=== PATIENT | female | born 1995 | race Caucasian/White ===

== ENCOUNTER 2018-01-10 20:40 | Emergency (ER) | payer MEDICAID, OTHER ==
[~2018-01-10] VITALS: Ht 162.6 cm; Wt 52.6 kg
[2018-01-10 20:43] VITALS: BP 131/91
[2018-01-10 21:10] VITALS: BP 129/85
== END 2018-01-10 21:10 | disposition home or self-care (01) ==
LOC: MED 20:40
DX: S46.912A Strain of unspecified muscle, fascia and tendon at shoulder and upper arm level, left arm, initial encounter (principal); S46.911A Strain of unspecified muscle, fascia and tendon at shoulder and upper arm level, right arm, initial encounter; S16.1XXA Strain of muscle, fascia and tendon at neck level, initial encounter; X58.XXXA Exposure to other specified factors, initial encounter; Y93.89 Activity, other specified; Y92.89 Other specified places as the place of occurrence of the external cause; Y99.8 Other external cause status
CPT/HCPCS: 81002; 81025; 99282

== ENCOUNTER 2018-11-20 02:22 | Emergency (ER) | payer MEDICAID, OTHER ==
[~2018-11-20] VITALS: Ht 162.6 cm; Wt 52.6 kg
[2018-11-20 02:33] VITALS: BP 125/70
--- NOTE | 2018-11-20 02:33 | NUR ---
TO BED # 06 AMBULATORY
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
[2018-11-20] MEDS ORDERED: traMADol 50 MG TAB PO ONE (03:10)
[2018-11-20 03:56] VITALS: BP 119/62
--- NOTE | 2018-11-20 03:56 | NUR ---
Patient discharged with v/s stable. Written and verbal after care instructions given and explained. Patient verbalized understanding. Ambulatory with steady gait. All questions addressed prior to discharge. Advised to follow up with PMD.
== END 2018-11-20 03:56 | disposition home or self-care (01) ==
LOC: MED 02:22
DX: K04.7 Periapical abscess without sinus (principal)
CPT/HCPCS: 99283

== ENCOUNTER 2021-04-14 15:16 | Emergency (ER) | payer OTHER ==
[~2021-04-14] VITALS: Ht 162.6 cm; Wt 51.7 kg
[2021-04-14 15:19] VITALS: BP 105/46
--- NOTE | 2021-04-14 15:20 | NUR ---
PT AMBULATED TO BED
--- NOTE | 2021-04-14 15:27 | NUR ---
RAD at bedside
--- NOTE | 2021-04-14 15:28 | NUR ---
25 y/o F BIB self from home c/o L 2nd digit pain x 30 minutes s/p slamming car door against finger. Patient reports 10/10, throbbing/constant, non-radiating pain. Bruising noted to tip of digit. Denies loss of sensation, numbness, tingling. Denies meds prior to arrival. Bed locked in lowest position, side rails x 1, call light in reach. PMH/Sx/Meds: Denies NKDA
--- NOTE | 2021-04-14 15:28 | NUR ---
YOGESH Richardson is evaluating patient at bedside
[2021-04-14] MEDS ORDERED: IBUPROFEN 600 MG TAB PO ONE (15:35)
[2021-04-14] MEDS ORDERED: IBUPROFEN 600 MG TAB ONE (15:36)
--- NOTE | 2021-04-14 15:40 | NUR ---
EMT at bedside for splint application
--- NOTE | 2021-04-14 15:42 | NUR ---
PT'S LEFT POINTER FINGER PLACED IN FROG SPLINT.
--- NOTE | 2021-04-14 16:02 | NUR ---
Pt states minor relief to pain 8/10 at this time. All pt needs met.
[2021-04-14] MEDS ORDERED: IBUP-2213 PO (16:03)
== END 2021-04-14 16:10 | disposition home or self-care (01) ==
LOC: MED 15:16
DX: S60.022A Contusion of left index finger without damage to nail, initial encounter (principal); Z79.899 Other long term (current) drug therapy; W23.0XXA Caught, crushed, jammed, or pinched between moving objects, initial encounter; Y93.89 Activity, other specified; Y92.89 Other specified places as the place of occurrence of the external cause; Y99.8 Other external cause status
CPT/HCPCS: 29130; 73140; 99283; Q0092

== ENCOUNTER 2022-11-21 23:00 | Emergency (ER) | payer OTHER ==
[~2022-11-21] VITALS: Ht 162.6 cm; Wt 48.1 kg
[~2022-11-21 23:00] MED LIST: IBUP-2213 PO
[2022-11-21 23:29] VITALS: BP 111/60; PULSE 90; RESP 16; TEMP 98; O2SAT 100
--- NOTE | 2022-11-21 23:32 | NUR ---
TO LOBBY A/W BED AMBULATORY
[2022-11-22 00:19] LABS: BASOPHILS % (AUTO) 0.3 % (0.0-2.0); EOSINOPHILS % (AUTO) 0.1 % (0.0-4.0); HEMATOCRIT 38.9 % (36-48); HEMOGLOBIN 13.4 g/dL (12.0-16.0); LYMPHOCYTES # (AUTO) 0.8 K/uL (2.5-16.5); LYMPHOCYTES % (AUTO) 5.9 % (20.5-51.1); MEAN CORPUSCULAR HEMOGLOBIN 30 pg (27-31); MEAN CORPUSCULAR HGB CONC 35 g/dL (33-37); MEAN CORPUSCULAR VOLUME 87.6 fL (80-94); MONOCYTES # (AUTO) 0.7 K/uL (0.8-1.0); MONOCYTES % (AUTO) 4.7 % (1.7-9.3); NEUTROPHILS # (AUTO) 12.7 K/uL (1.8-7.7); PLATELET COUNT (AUTO) 264 K/uL (140-450); RED BLOOD CELL COUNT(AUTO) 4.44 MIL/uL (4.20-5.40); RED CELL DISTRIBUTION WIDTH 12.5 % (11.6-13.7); WHITE BLOOD COUNT (AUTO) 14.3 K/uL (4.8-10.8)
[2022-11-22 01:01] LABS: ALBUMIN 4.4 g/dL (3.4-5.0); ANION GAP 17.3 (8-16); CARBON DIOXIDE 22.3 mmol/L (21-32); CREATININE 0.6 mg/dL (0.6-1.3); MAGNESIUM 1.7 mg/dL (1.8-2.4); PHOSPHORUS 2.8 mg/dL (2.5-4.9); POTASSIUM 3.6 mmol/L (3.5-5.1); THYROID STIMULATING HORMONE 1.17 uIU/mL (0.34-3.74); TOTAL BILIRUBIN 0.9 mg/dL (0.0-1.0)
[2022-11-22 01:30] VITALS: BP 111/60; PULSE 90; RESP 16; TEMP 98; O2SAT 100
== END 2022-11-22 01:30 | disposition home or self-care (01) ==
LOC: MED 23:00
DX: R20.2 Paresthesia of skin (principal); F41.9 Anxiety disorder, unspecified; Z79.899 Other long term (current) drug therapy; Z98.890 Other specified postprocedural states
CPT/HCPCS: 36415; 80053; 83735; 84100; 84443; 85025; 99283

== ENCOUNTER 2023-07-19 06:18 | Emergency (ER) | payer OTHER ==
[~2023-07-19] VITALS: Ht 162.6 cm; Wt 51.3 kg
[2023-07-19 06:24] VITALS: BP 107/71; PULSE 95; RESP 16; TEMP 97.7; O2SAT 99
[2023-07-19] MEDS: KETOROLAC 30 MG/ML VIAL IM ONE (07:48)
[2023-07-19] MEDS: PROCHLORPERAZINE 10 MG/2 ML VIAL IM ONE (07:48)
[2023-07-19] MEDS ORDERED: ONDA-188 SL (08:08)
[2023-07-19] MEDS ORDERED: IBUP-1842 PO (08:08)
[2023-07-19] MEDS ORDERED: DOXY-690 PO (08:26)
== END 2023-07-19 08:33 | disposition home or self-care (01) ==
LOC: MED 06:18
DX: G43.909 Migraine, unspecified, not intractable, without status migrainosus (principal); J32.9 Chronic sinusitis, unspecified; Z79.1 Long term (current) use of non-steroidal anti-inflammatories (NSAID)
CPT/HCPCS: 81025; 96372; 99284; J0780; J1885; Q0163